=== PATIENT | female | born 1965 | race Caucasian/White ===

== ENCOUNTER → 2017-12-16 | Outpatient (CLI) | payer BC, OTHER ==
[~2017-12-16] MED LIST: B/P MED PO; BUPR100T6 PO; CYCL10TA9 PO; KETO10TA PO; METF500T5 PO; NAPR-243 PO; NITR-65 PO; TRM50T PO; [UNRECOGNIZED DRUG - OTHER] PO
--- NOTE | 2017-12-16 13:40 | Diagnostic Imaging Report ---
INDICATION: Lung lesion. CT chest obtained without IV contrast and compared with images from abdominal CT of 07/23/15. FINDINGS: There are no enlarged mediastinal lymph nodes. There are calcified nodes in the subcarinal region and right hilum compatible with old granulomatous disease. There is no chest wall mass or overt axillary adenopathy. There is no pleural or pericardial fluid. Bony windows are unremarkable. Lung parenchymal windows demonstrate a calcified granuloma in the right middle lobe measuring about 1.3 cm. This has a benign appearance and is unchanged compared with 07/23/15. There are no other suspicious pulmonary parenchymal lesions. Visualized portions of the upper abdomen were unremarkable. IMPRESSION: Stable calcified lesion in the right middle lobe compatible with calcified granuloma. There are calcified nodes in the right hilum and subcarinal region which are also compatible with old granulomatous disease. There is no suspicious lesion or pleural fluid. Dictated by: Dictated on workstation # [id number]
== END ==
LOC: RAD 11:25
PROVIDERS: ATTEND Family Medicine
DX: R91.1 Solitary pulmonary nodule (principal); J98.4 Other disorders of lung
CPT/HCPCS: 71250